=== PATIENT | male | born 1940 | race Caucasian/White ===

== ENCOUNTER 2017-06-23 00:45 | Observation (INO) | payer MEDICARE ==
[2017-06-23] VITALS (12 sets, daily range): BP systolic 152–188; BP diastolic 79–99; PULSE 76–97; RESP 16–20; O2SAT 94–97
[~2017-06-23] VITALS: Ht 177.8 cm; Wt 106.8 kg
[~2017-06-23 00:45] MED LIST: ASPI-628 PO; FERR-74 PO; LIP40 PO; LISI10TA2 PO; LOV80 SUBQ; SLO64 PO; WARF5TAB PO; [UNRECOGNIZED DRUG - CODE] PO
--- NOTE | 2017-06-23 00:55 | ED.REPORT ---
HPI-Chest Pain 40 and Over Date of Service Jun 23, 2017 ED Provider: Hadley Edmonds MD A 76 year old male with a history of CAD, stent placement, PE after surgery, hypertension and left carotid endarterectomy presents to the ED complaining of chest pressure. The pressure began at 23:00 tonight while the pt was laying down tonight and lasted for approximately two hours. This pressure has been intermittently present for two months and seems to be exertional. The pt can walk less than a block before the pressure begins, but has also experienced chest pressure at rest. This is accompanied by occasional diaphoresis and shortness of breath though the pt denies fever, cough, dysuria and nausea. The pt has been seen by his PCP for this pain but has not yet seen a logistics planning engineer. His last stress test was over ten years ago. The pt takes one 81 mg aspirin every morning and denies use of medications for erectile dysfunction or anticoagulation. He has not taken any nitro tonight. Pt is a poor historian. Nursing Notes Stated Complaint: CHEST PAIN Chief Complaint: Chest Pain Nursing Notes Reviewed: Yes Allergies: Coded Allergies: No Known Allergies (Verified Allergy, Unknown, 07/06/14) Scheduled Ascorbic Acid (Vitamin C) 500 Mg Tablet.er 500 MG PO DAILY Aspirin (Aspir 81) 81 Mg Tablet.dr 81 MG PO DAILY Atorvastatin (Lipitor) 40 Mg Tablet 40 MG PO HS Enoxaparin (Lovenox) 80 Mg/0.8 Ml Syringe 80 MG SUBQ Q12H Ferrous Sulfate (Feosol) 325 Mg Tablet 325 MG PO DAILYWM Lisinopril (Lisinopril) 10 Mg Tablet 20 MG PO DAILY Magnesium Chloride (Slow-Mag) 64 Mg Tablet 64 MG PO DAILY Warfarin Sodium (Coumadin) 5 Mg Tablet 7.5 MG PO UD General Time Seen by MD: 00:55 Chief Complaint Chest pressure Hx Obtained From: Patient, Spouse Arrived By: Walk-in Sudden in Onset?: No Onset Occurred: 1 - 4 hours ago Symptom Duration: 1 - 4 hours Recent Healthcare: Recent doctor visit Similar Sx Previous: Yes Past Medical History Past Medical History Asthma Chronic back pain Actinic keratosis PE after surgery Reports: Coronary artery disease, Hypertension Past Surgical History Stent placement Right knee scope Lumbar lami Left carotid endarterectomy Right CTR Smoking History Former Smoker (quit 1979) Social History Alcohol Use: 1-3 per day Other Social History: Good social support, Ambulatory Status Independent Review of Systems Review of Systems Note: chest pressure Constitutional: Denies: Fever Respiratory: Reports: Shortness of breath, Denies: Non-productive cough GI: Denies: Abdominal pain, Nausea, Vomiting Musculoskeletal: Denies: Neck pain Skin: Reports Diaphoresis, Denies Rash Complete sys rev & neg: except as marked. Female: Denies: Dysuria Physical Exam Initial Vital Signs Vital Signs (First) Date Time Temp Pulse Resp B/P Pulse Ox O2 Delivery O2 Flow Rate FiO2 06/23/17 00:54 36.5 91 19 174/88 96 Room Air Initial VS: Reviewed General/Constitutional: Awake, Alert Respiratory / Chest: Atraumatic, Breath sounds NL, Breath sounds = bilat, No respiratory distress Cardiovascular: Heart rate NL, Regular rhythm 4/6 systolic murmur, upper right sternal border Abdomen: Atraumatic, Soft, Non-tender, BS normoactive Neck: Atraumatic, Supple, Full range of motion Back: Atraumatic, Full range of motion Lower Extremity / Pelvis / MS: Atraumatic, Full range of motion Skin: Atraumatic, Color NL, No rash, Warm, Dry Neurologic: Oriented X3, Speech NL, No motor deficits, No sensory deficits Psychiatric: Affect NL, Mood NL Head / Eyes: Atraumatic, Normocephalic, PERRL, EOMI ENT: Atraumatic, Airway patent, Mucous membranes moist Upper Extremity / MS: Atraumatic, Full range of motion Interpretation & Diagnostics Lab Results Interpretation Result Diagram: 06/23/17 0102 06/23/17 0102 Test 06/23/17 01:02 06/23/17 03:12 White Blood Count 6.5th/mm3 (3.8-10.1) Red Blood Count 3.62mil/mm3 (4.40-5.80) Hemoglobin 12.4g/dL (13.8-17.2) Hematocrit 35.1% (41.0-50.0) Mean Corpuscular Volume 97.0fL (81-100) Mean Corpuscular Hemoglobin 34.3pg (27.0-35.0) Mean Corpuscular Hemoglobin Concent 35.3% (32.0-37.0) Red Cell Distribution Width 12.5% (12.3-15.4) Platelet Count 188bil/L (150-400) Neutrophils (%) (Auto) 44.9% (40-74) Lymphocytes (%) (Auto) 39.6% (14-46) Monocytes (%) (Auto) 11.6% (4-12) Eosinophils (%) (Auto) 3.4% (0-5) Basophils (%) (Auto) 0.3% (0-3) D-Dimer 0.85mg/L FEU (<0.50) Sodium Level 132mEq/L (134-144) Potassium Level 4.2mEq/L (3.5-5.2) Chloride Level 94mEq/L (97-108) Carbon Dioxide Level 23mmol/L (18-29) Blood Urea Nitrogen 8mg/dL (8-27) Creatinine 0.51mg/dL (0.76-1.27) Estimat Glomerular Filtration Rate 167mL/min (>59) Glucose Level 99mg/dL (60-99) Calcium Level 9.4mg/dL (8.5-10.1) Magnesium Level 1.3mg/dL (1.6-2.6) Total Bilirubin 0.5mg/dL (0.0-1.2) Aspartate Amino Transf (AST/SGOT) 40U/L (0-50) Alanine Aminotransferase (ALT/SGPT) 36U/L (0-44) Alkaline Phosphatase 67U/L (25-160) Total Protein 7.1g/dL (6.4-8.4) Albumin 4.3g/dL (3.4-5.0) ECG Interpretation ECG Interpretation: normal sinus rhythm with a rate of [address] segment changes Time: 00:56 Interpreted by: ED physician X-Ray Chest Interpretation Chest Xray Interpretation: no acute findings Interpretation / Wet Read by: Wet read ED physician Re-Eval/Medical Decision Med Decision/Clinical Course 76-year-old male with a known history of coronary artery disease presenting with exertional chest pain over approximately one month. He is now having episodic rest pain as well. Arrives pain-free but hypertensive. Initial ECG did not show ischemic changes, initial troponin was normal. He was given aspirin 324 mg and Nitropaste. He had no further chest pain. There is a history of provoked pulmonary embolism. He is not anticoagulated at present. D-dimer is elevated so a CT angiogram is presently pending. Will be admitted to the hospitalist service with the hope of provocative testing before discharge. Source of Hx: Old records Time of Eval: 00:55 Patient Status: Condition improved Re-Evaluation/Progress Note: Pt informed of the plan for admission during the initial interview. The pt understands and agrees with the plan. All questions are addressed at this time. Time of Eval: 02:18 Patient Status: Condition improved Re-Evaluation/Progress Note: Pt rechecked, who is resting without chest pain. Lab results and need for CT are discussed. Consultation : Referral / Consult Name: Cuong Coelho MD Consulted With: Hospitalist Call Returned at: 02:27 Client Services Coordinator: Agrees with eval, Agrees with plan, Accepts admit Note: Spoke with Dr. Coelho, hospitalist, regarding pt's case. Dr. Coelho agrees with the evaluation and agrees to admit the pt. Counseled Regarding: Diagnosis, Lab results, Need for admission Discharge & Departure Primary Impression: Unstable angina Additional Impression: Chest pain Chest pain type: unspecified Qualified Code: R07.9 - Chest pain, unspecified Disposition: ADMITTED TO HOSPITAL Discharge Condition All VS Reviewed: Yes Condition: Stable Referrals: Artur Chin MD (PCP) Scribe Attestation Portions of this note were transcribed by Madison Diaz. I, Dr. Edmonds personally performed the history, physical exam and medical decision-making; I reviewed and confirmed the accuracy of the information in the transcribed note. copies to: Artur Chin MD, Donald L MD Jun 23, 2017 00:55 MADISON DIAZ Jun 23, 2017 01:08
[2017-06-23 01:08] LABS: BASOPHILS % (AUTO) 0.3 % (0-3); EOSINOPHILS % (AUTO) 3.4 % (0-5); MONOCYTES % (AUTO) 11.6 % (4-12); Mean Corpuscular Hemoglobin 34.3 pg (27.0-35.0); NEUTROPHILS % (AUTO) 44.9 % (40-74); Platelet Count 188 bil/L (150-400)
[2017-06-23] MEDS ORDERED: Nitroglycerin 2% 1 Gm Ointment TOPICAL SCH (01:10)
[2017-06-23 01:58] LABS: Magnesium 1.3 mg/dL (1.6-2.6); TROPONIN T 0.01 ug/L (0.0-0.011)
[2017-06-23] MEDS ORDERED: Polyethylene Glycol (PEG) 17 Gm Powder PO PRN (02:30)
[2017-06-23] MEDS ORDERED: Ondansetron 2 mg/mL 2 mL Inj IVPUSH PRN (02:30)
[2017-06-23] MEDS ORDERED: Senna-Docusate 8.6-50 mg Tablet PO PRN (02:30)
[2017-06-23] MEDS ORDERED: Atropine 1 mg/10 mL (Code) Syringe IVPUSH PRN (02:30)
[2017-06-23] MEDS ORDERED: Alum-Mag Hydrox-Simeth 30 mL Suspension PO PRN (02:30)
--- NOTE | 2017-06-23 02:37 | PCM.HPMED ---
Subjective Date of Service Jun 23, 2017 Primary Provider: Admitting Physician: Primary Care Physician: Artur Chin MD Attending Physician: Admit Status: From the Emergency Department, 23-Hour Observation, Remote Telemetry Chief Complaint: Chest pain History of Present Illness: Tate Little is a 76 year old male with Coronary artery disease s/p stent placement, Pulmonary Embolism after surgery,Hypertension and left carotid endarterectomy presents to [facility] emergency department complaining of chest pressure. Patient reported the chest pressure has been ongoing for about a month but has progressively worsened. Pain was worst around 2300 while the patient was lying down, lasted for about 2 hours. Pain described as intermittently, pressure, located on the left anterior chest with radiation to the right side. Worsened with exertion. Denies any associated diaphoresis or nausea. Denies any dyspnea or coughing The pt has been seen by his PCP for this pain but has not yet seen a document clerk. His last stress test was in 2002 and stent placed in 2000. He has not seen a Cast Shell Grinder in years Case discussed with Dr Edmonds, EKG without any ischemic changes with normal initial troponin. Given risk factors he will be admitted for Stress test. Review of Systems: Pertinent positives as noted in HPI. All other systems were reviewed and are negative Allergies Coded Allergies: No Known Allergies (Verified Allergy, Unknown, 07/06/14) Home Medications From [facility], not yet confirmed Tate Little [id number] 1940 12/12/2016 08:00 AM Page: 10/19 Vitamin C 500 Mg stopped Aleve 220 mg Tab take 1 tablet (220MG) by ORAL route every 12 hours as needed ANUSOL-HC 1 %OINT. (G) as directed aspirin 81 mg Tab, Delayed Release take 1 tablet (81MG) by ORAL route every day benzonatate 100 mg capsule take 1 capsule by oral route 3 times every day PRN cough Fish Oil 1 tablet by mouth 2 times daily Lipitor 1/2 tablet by mouth every evening Multi-Ginger 50 & Over 1 tablet by mouth daily prednisone 20 mg tablet take 2 tablet by ORAL route every day in AM with food Vitamin E 400 Intl Units 1 tablet by mouth daily PMH C-spine surgery with cervical discectomy and fusion, with complications as noted. Acute respiratory failure secondary to cervical edema necessitating intubation and mechanical ventilation. Pulmonary embolism s/p surgery currently not on any anticoagulations Chronic mild aspiration related to above, slowly improving. Hypertension Obesity and hyperlipidemia Coronary artery disease and prior stents COPD and bronchospasm Degenerative arthritis Abnormal liver function tests at time of last hospitalization, unclear whether secondary to "shock liver" versus prior alcohol use Erectile dysfunction . Surgical History Cardiac catheterization with LAD stents 2000 C6-7 and C7-T1 cervical discectomy with fusion plate cage and bone graft on 03/2014 Left carotid endarterectomy Tonsillectomy Family History Father age 60 mother had arrhythmia Social History Hx Alcohol Use: Yes (WINE/WHISKEY-8 DRINKS/DAY) Hx Substance Use: No Hx Tobacco Use: No Smoking Status: Never Smoker Living Arrangement: with Family Exam Vital Signs Vital Sign - Last Date Time Temp Pulse Resp B/P Pulse Ox O2 Delivery O2 Flow Rate FiO2 06/23/17 00:54 36.5 91 19 174/88 96 Room Air Exam General: Alert, Oriented X3, Cooperative, No acute Distress Eyes: PERRLA, Scleral Anicteric Mouth: Mouth Normal, Mucous Membranes Moist/Guinda Neck: Supple, no Thyromegaly, trachea central. Chest & Lungs: Clear to auscultation & percussion, No adventitious breath sounds, no crackles, no wheeze Cardiovascular: Normal S1, Normal S2, No Murmurs/Rubs/Gallops, Regular Rate/ Rhythm, Murmur, Other (No JVD, no peripheral edema) Pulses: Radial (present and equal), Dorsalis Pedi (present and equal) Abdomen: Soft, Non-tender, Non-distended, Normoactive bowel tones. Musculoskeletal: Unremarkable. Normal range of motion, no swollen or erythematous joints Extremities: No edema, no cyanosis, no clubbing. Skin: No rashes. Warm and dry, no erythematous areas Neurological: Grossly neurologically intact, has generalized weakness, Normal Speech, Sensation Intact Lymphatic: Lymph nodes Cervical and Axillary not palpable. Lab and Diagnostics Labs Laboratory Tests Test 06/23/17 01:02 White Blood Count 6.5th/mm3 (3.8-10.1) Red Blood Count 3.62mil/mm3 (4.40-5.80) Hemoglobin 12.4g/dL (13.8-17.2) Hematocrit 35.1% (41.0-50.0) Mean Corpuscular Volume 97.0fL (81-100) Mean Corpuscular Hemoglobin 34.3pg (27.0-35.0) Mean Corpuscular Hemoglobin Concent 35.3% (32.0-37.0) Red Cell Distribution Width 12.5% (12.3-15.4) Platelet Count 188bil/L (150-400) Neutrophils (%) (Auto) 44.9% (40-74) Lymphocytes (%) (Auto) 39.6% (14-46) Monocytes (%) (Auto) 11.6% (4-12) Eosinophils (%) (Auto) 3.4% (0-5) Basophils (%) (Auto) 0.3% (0-3) D-Dimer 0.85mg/L FEU (<0.50) Sodium Level 132mEq/L (134-144) Potassium Level 4.2mEq/L (3.5-5.2) Chloride Level 94mEq/L (97-108) Carbon Dioxide Level 23mmol/L (18-29) Blood Urea Nitrogen 8mg/dL (8-27) Creatinine 0.51mg/dL (0.76-1.27) Estimat Glomerular Filtration Rate 167mL/min (>59) Glucose Level 99mg/dL (60-99) Calcium Level 9.4mg/dL (8.5-10.1) Magnesium Level 1.3mg/dL (1.6-2.6) Total Bilirubin 0.5mg/dL (0.0-1.2) Aspartate Amino Transf (AST/SGOT) 40U/L (0-50) Alanine Aminotransferase (ALT/SGPT) 36U/L (0-44) Alkaline Phosphatase 67U/L (25-160) Troponin T 0.010ug/L (0.0-0.011) Total Protein 7.1g/dL (6.4-8.4) Albumin 4.3g/dL (3.4-5.0) Result Diagram: 06/23/1710106/23/17101 Assessment & Plan Tate Little is a 76 year old male with Coronary artery disease s/p stent placement, Pulmonary Embolism after surgery,Hypertension and left carotid endarterectomy presents to [facility] emergency department complaining of chest pressure. 1. Acute Chest pain. Present on admission Could be Unstable angina given multiple risk factors for Acute coronary syndrome. Coronary disease with LAD stents 2000, last stress test was Aug 2007. Possible the patient has developed advanced atherosclerotic disease since last evaluation. Patient without any persistent symptoms and no anticoagulations will be initiated. Differential diagnosis includes Pulmonary embolism given prior history but less likely given low Wells score - monitor on telemetry - nothing by mouth for stress test - trending cardiac biomarkers - complete echo - continue Aspirin for antiplatelet therapy as well as statin therapy - Exercise stress test with Mercedes back up 2. Hypertension, Chronic Presumed stable - currently not on any antihypertensive medications 3. Hyperlipidemia, Chronic - continue Lipitor and Fish oil - checking lipid panel - Acetaminophen as needed for mild pain/fever/headache - Bowel regimen as needed - Antiemetic as needed Patient is admitted under observation status with expected length of stay less than 2 midnights due to severity of presenting symptoms, risk of adverse event, and complexity of treatment plan. . Resuscitation Status: CPR: Attempt Resuscitation Cuong Coelho MD Jun 23, 2017 02:37
[2017-06-23 04:11] LABS: Creatine Kinase 91 U/L (21-232)
[2017-06-23] MEDS: 0.9% Sodium Chloride 1,000 ML IV SCH ×3 (04:59→21:30)
--- NOTE | 2017-06-23 05:07 | NUR ---
Admission Pt arrived to [facility] rm 1016 at 0415 from the ED. Pt able to transfer from [facility] to bed with SBA. Pt is A/O x3, slight WILTON with no H/A's. Pt is here for CP that has gotten worse over the last 2months, causing SOB with exertion. Pt is RA, VSS. IV SL to Rt AC, patent. IV fluids started. Pt has been admitted here prior, quick re-orientation done. All questions answered. Pt is NPO for AM stress test. Cont B/B, using urinal at bedside. CPR. Bedside table in reach, call light at bedside in reach. Care continues Addendum: 06/23/17 at 0529 by JOSE ALFREDO FERNANDEZ RN Pt with tele, per case monitor SR 80's
--- NOTE | 2017-06-23 06:03 | PCM.ADCARE ---
Advance Care Planning Note Purpose of Encounter: Active Diagnoses: Coronary artery disease with stent to LAD Hypertension Hyperlipidemia These active diagnoses are sufficient risk that focused discussion on advance car planning is indicated in order to allow the patient to thoughtfully consider personal goals of care and if situations arise that prevent the ability to personally give input to insure appropriate representation of their personal desires through documentation or informed surrogate decision makers Parties in Attendance: me and patient Decisional Capacity: Good Plan: The patient's is aware of the current diagnosis and would like to continue to be full code. The patient's understands that this means for chest compressions , intubation, pressors, and all measures involved with CPR. CODE STATUS: FULL CODE Time Spent Adv.Care Planning: Total time spent [id number] in education and discussion directly related to Advance Care Plannin minutes Cuong Coelho MD Jun 23, 2017 06:03
--- NOTE | 2017-06-23 06:28 | DRSVH ---
PROCEDURE: X-RAY CHEST ONE VIEW, PORTABLE ([id number]) INDICATIONS: 76 year-old male with chest pain. TECHNIQUE: One view of the chest was acquired. COMPARISON: [facility], , CHEST 2VW, 10/04/2016, 9:21 AM. [facility], , CHEST 1V W (PORTABLE), 07/09/2014, 3:47. [facility], , CHEST 1VW (PORTABLE), 07/06/2014, 14:28. FINDINGS: Surgical changes and devices: Left neck surgical clips are again noted, as well as lower cervical spi ne anterior fixation hardware. Lungs and pleura: No pleural effusions or pneumothorax. Lungs are clear. Mediastinum: Mediastinal contours appear normal. Heart size is normal. There is aortic atheroscler osis. Bones and chest wall: No suspicious bony lesions. Overlying soft tissues appear unremarkable. IMPRESSION: No acute cardiopulmonary disease. Dictated by: Shaheed Pacheco M.D. on 06/23/2017 at 6:26 Approved by: Shaheed Pacheco M.D. on 06/23/2017 at 6:27
[2017-06-23] MEDS ORDERED: ASPI-973 PO (07:14)
[2017-06-23] MEDS ORDERED: LISI-567 PO (07:15)
[2017-06-23] MEDS: Sodium Chloride LOK Flush 10 mL Syringe IVFLUSH SCH ×3 (08:30→20:21)
--- NOTE | 2017-06-23 09:24 | DRSVH ---
PROCEDURE: CT ANGIO CHEST PULMONARY EMBOLISM ([id number]) INDICATIONS: 76 year-old male with chest pain. TECHNIQUE: After the administration of intravenous contrast, 2 mm thick sections acquired from the pulmonary api nara to the posterior costophrenic angles. 3-dimensional maximum intensity projection (MIP) coronal a nd sagittal reformats were then acquired through the thorax. For radiation dose reduction, the follo wing was used: automated exposure control, adjustment of mA and/or kV according to patient size. COMPARISON: [facility], CT, CHEST ANGIO-PE, 07/06/2014, 14:04. FINDINGS: Preliminary interpretation rendered by [facility]. Image quality: Excellent. Pulmonary arteries: Pulmonary arteries are normal in size, and demonstrate no intraluminal filling d efects to suggest central pulmonary embolism. Lungs and pleura: Lungs are clear. No pleural effusions or pneumothorax. Bilateral calcified pleur al plaques are again noted. Central and peripheral airways are patent. Mediastinum: Heart size is normal, without pericardial effusion. There is widespread coronary arter y atherosclerosis. No mediastinal or hilar adenopathy. Thoracic aorta is normal in caliber and enhan cement. Esophagus is normal in caliber, without hiatal hernia. Bones and chest wall: No suspicious bony lesions. Ribs and thoracic spine appear intact throughout. Thyroid gland is small in overall size. No axillary or supraclavicular adenopathy. Lower cervical spine fixation hardware is present. 3.0 cm cystic lesion within the medial right subscapularis muscle appears new since 2013. Abdomen: There is diffuse fatty infiltration of the liver. IMPRESSION: 1. No evidence for central pulmonary embolism. 2. Bilateral calcified pleural plaques indicate remote asbestos exposure. 3. Diffuse fatty infiltration of the liver. 4. 3.0 cm cystic lesion within the medial right subscapularis muscle, likely a soft tissue ganglion c yst. Consider noncontrast right shoulder MRI to evaluate for any underlying acute internal derangemen t. Dictated by: Shaheed Pacheco M.D. on 06/23/2017 at 9:14 Approved by: Shaheed Pacheco M.D. on 06/23/2017 at 9:23
[2017-06-23] MEDS ORDERED: Magnesium Sulf 4 Gm/100 mL H2O 4 GM in IV Premix 1 EACH IV ONE (09:35)
[2017-06-23 09:37] LABS: Creatine Kinase 82 U/L (21-232)
--- NOTE | 2017-06-23 12:23 | NUR ---
KAITLIN explained and signed. Copy of KAITLIN and Medicare self administered medication information given to pt.
--- NOTE | 2017-06-23 16:19 | NUR ---
Social Work-initial assessment/readiness for discharge/ multidisciplinary rounds: Data:See initial assessment. Pt is 76 y/o male who was admitted on 06/23/17 for chest pain per H&P. Pt's insurance is [employer] and PCP is Deja Chin MD. EMR Reviewed. SW met with pt at bedside, SW role explained. Pt is alert and oriented x3. Pt resides at home with his [place] in [facility] where he remains independent with ADLS. Pt does not use any DME and drives. Pt has no HH or SNF history. Pt has no detention care insurance or VA benefits. SW discussed DPOA/ advanced directive, pt confirms he has completed this, SW encouraged a copy to be brought in. No concerns noted in morning rounds regarding pt's capacity for self care, per RN or MD. Pt has been up independent in his room. Pt's to provide transport home. SW provided pt with discharge planning checklist and encouraged pt to call with any questions, phone number provided. No anticipated discharge needs. SW will continue to follow if needs arise. Assessment:Pt who is independent at baseline. Plan:Pt to discharge home when medically stable via POV. No anticipated discharge needs. SW will continue to follow if needs arise. SUGAR Beavers Addendum: 06/23/17 at 1622 by KIARA MATTSON SS Amended: Links added.
--- NOTE | 2017-06-23 16:24 | NUR ---
Shift Report: Tate's BP was high this morning before his stress test and his mag level was low. Lisinopril, Mag. Sulfate, Mag. Oxide given per order. Stress test completed early afternoon. He will be NPO again at midnight for the second part of his test tomorrow - his resting portion of the study.
[2017-06-24 00:03] VITALS: BP 170/84; PULSE 85; RESP 16; O2SAT 96
[2017-06-24 04:26] VITALS: BP 164/92; PULSE 95; RESP 20; O2SAT 93
[2017-06-24 06:08] VITALS: PULSE 77
--- NOTE | 2017-06-24 06:25 | NUR ---
uneventful night Pt denies chest pain this shift. Tele SR 70s-80s. slept most of the night. NPO since midnight for the second part of MIBI. Pt compliant.
[2017-06-24 06:46] LABS: BASOPHILS % (AUTO) 0.2 % (0-3); EOSINOPHILS % (AUTO) 2.8 % (0-5); Mean Corpuscular Hemoglobin 33.8 pg (27.0-35.0); Mean Corpuscular Volume 98.1 fL (81-100); NEUTROPHILS % (AUTO) 54.9 % (40-74); Platelet Count 183 bil/L (150-400)
[2017-06-24 08:00] VITALS: PULSE 104
[2017-06-24 08:24] VITALS: BP 159/91; PULSE 84; RESP 18; O2SAT 97
[2017-06-24] MEDS: Sodium Chloride LOK Flush 10 mL Syringe IVFLUSH SCH (08:30)
--- NOTE | 2017-06-24 10:04 | PCM.PNMED ---
Subjective Date of Service Jun 24, 2017 Subjective Patient seen and examined. No chest pain. Vitals stable. Exam Vital Signs Vital Sign - Last Date Time Temp Pulse Resp B/P Pulse Ox O2 Delivery O2 Flow Rate FiO2 06/24/17 08:24 36.6 84 18 159/91 97 Room Air Intake and Output 06/23/17 06/23/17 06/24/17 Cumulative From/Thru 15:00 23:00 07:00 06/23/17 00:54 - 06/24/17 06:21 Intake Total 518 ml 1539 ml 2057 ml Output Total 650 ml 1800 ml 3050 ml Balance -132 ml -261 ml -993 ml Intake Oral 518 ml 400 ml 918 ml IV Total 1139 ml 1139 ml Output Urine Total 650 ml 1800 ml 3050 ml # Voids 2 2 # Bowel Movements 0 0 Exam General: Alert, Oriented X3, Cooperative, No acute Distress Chest & Lungs: Clear to auscultation & percussion, No adventitious breath sounds, no crackles, no wheeze Cardiovascular: Normal S1, Normal S2, No Murmurs/Rubs/Gallops, Regular Rate/ Rhythm, Murmur, Other (No JVD, no peripheral edema) Pulses: Radial (present and equal), Dorsalis Pedi (present and equal) Abdomen: Soft, Non-tender, Non-distended, Normoactive bowel tones. Musculoskeletal: Unremarkable. Normal range of motion, no swollen or erythematous joints Extremities: No edema, no cyanosis, no clubbing. Lab and Diagnostics Result Diagram: 06/24/17 0606/24/17 0600 Assessment & Plan Tate Little is a 76 year old male with Coronary artery disease s/p stent placement, Pulmonary Embolism after surgery,Hypertension and left carotid endarterectomy presents to [facility] emergency department complaining of chest pressure. 1. Acute Chest pain. Present on admission - Strest test second part toay - complete echo, pendin gfinal read - continue Aspirin for antiplatelet therapy as well as statin therapy 2. Hypertension, Chronic Presumed stable - will start patient on amlodipine , on lisinopril at home 3. Hyperlipidemia, Chronic - continue Lipitor and Fish oil - Acetaminophen as needed for mild pain/fever/headache - Bowel regimen as needed - Antiemetic as needed Patient is admitted under observation status with expected length of stay less than 2 midnights due to severity of presenting symptoms, risk of adverse event, and complexity of treatment plan. . VTE Mechanical Devices: Intermittant Pneumatic CD Resuscitation Status: CPR: Attempt Resuscitation Time spent 35 mins Nash Wayne MD Jun 24, 2017 10:04
[2017-06-24] MEDS: 0.9% Sodium Chloride 1,000 ML IV SCH (10:44)
[2017-06-24 11:37] VITALS: BP 139/72; PULSE 86; RESP 18; O2SAT 97
--- NOTE | 2017-06-24 12:25 | DRSVH ---
PROCEDURE: 2 DAY PHARMACEUTICAL STRESS TEST Rest and exercise myocardial perfusion SPECT with gated imaging and ejection fraction RADIOPHARMACEUTICAL: 24.2 mCi Tc-99m tetrafosmin IV at rest and 24.7 mCi Tc-99m tetrafosmin IV at pe ak exercise. [id number] was performed. INDICATIONS: CHEST PAIN. TECHNIQUE: Radiopharmaceutical was injected at peak stress test, and also at rest. SPECT images wer e obtained. SPECT myocardial perfusion images were displayed in short axis, horizontal long axis, an d vertical long axis views. Gated images were reviewed using Auto[employer] software. COMPARISON: None. CARDIAC STRESS: A standard lexiscan stress test using lexisacan 0.4mg IV X1 was performed by the patient under the lau pervision of an attending staff. Hemodynamic data: There is normal blood pressure and heart rate response to stress. Symptoms: Patient had chest pain during the stress test. EKG: Mild horizontal ST depressions noted in the inferior and anterolateral leads; no ectopy. FINDINGS: Raw data: There is good myocardial labeling by radiotracer. No significant motion artifacts. Left ventricle function: Resting gated images show normal LV size, wall motion, and function (EF 74% ). No transient ischemic dilation. The left ventricle resting end-diastolic volume is 75 mL. Left ventricle stress ejection fraction is 48% with severe hypokinesis of the anterior wall, septum, and a pex; normal values are above 45%. Myocardial perfusion: Large mildly to moderately severe reversible defect in the anterior wall that is consistent with ischemia without prior infarction. IMPRESSION: Abnormal study consistent with significant ischemia. 1) Large area of mildly to moderately severe reversible defect in the anterior wall that is consisten t with ischemia without prior infarction. 2) Normal resting LV size, wall motion, and function (resting EF 74%) but post stress LV images have severe hypokinesis of the anterior wall, septum, and the apex with LVEF of 48%. This could be due to myocardium stunning from LAD ischemia. 3) Chest pain during stress test could be angina. 4) ECG suggestive of ischemia. 5) No prior nuclear stress test available for comparison. Dictated by: Karyn Stevenson M.D. on 06/24/2017 at 12:16 Approved by: Karyn Stevenson M.D. on 06/24/2017 at 12:23
[2017-06-24] MEDS ORDERED: MeTOProlol XL 25 mg ER24 Tablet PO SCH (12:35)
--- NOTE | 2017-06-24 12:43 | PCM.DIMED ---
Discharge Instructions Date of Service Jun 24, 2017 Dates of Hospitalization Jun 23, 2017 at 03:13 Discharge Diagnosis Discharge Diagnosis CAD Diet Discharge Diet: Low fat, Low Sodium, Heart Healthy Activity Discharge Activity: Limited until seen by PCP Call your provider Call your provider for: Fever or Chills, Chest pain Patient Instructions Patient Instructions Please call Dr. Juan Stevenson's group in case you do not hear back from them within next 48 hours. Follow-up plan Patient will be called by Dr. Stevenson (or colleague) to set up an appointment for outpatient cardiac cath. Follow-up with PCP in: 1 week Nash Wayne MD Jun 24, 2017 12:43
[2017-06-24] MEDS ORDERED: METO-386 PO (12:44)
[2017-06-24] MEDS ORDERED: AMLO5TAB2 PO (12:44)
--- NOTE | 2017-06-24 12:46 | PCM.DC.MED ---
Discharge Summary Date of Service Jun 24, 2017 Dates of Hospitalization Date of Hospital Admission Jun 23, 2017 at 03:13 Date of Discharge: Jun 24, 2017 Providers: Admitting Physician: Cuong Coelho MD Primary Care Physician: Artur Chin MD Attending Physician: Brianda Tao MD Diagnosis at Time of Discharge Diagnosis at Time of Discharge CAD Procedures Other Diagnostics Stress test (Mercedes) IMPRESSION: Abnormal study consistent with significant ischemia. 1) Large area of mildly to moderately severe reversible defect in the anterior wall that is consistent with ischemia without prior infarction. 2) Normal resting LV size, wall motion, and function (resting EF 74%) but post stress LV images have severe hypokinesis of the anterior wall, septum, and the apex with LVEF of 48%. This could be due to myocardium stunning from LAD ischemia. 3) Chest pain during stress test could be angina. 4) ECG suggestive of ischemia. 5) No prior nuclear stress test available for comparison. 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 Patient reported the chest pressure has been ongoing for about a month but has progressively worsened. Pain was worst around 2300 while the patient was lying down, lasted for about 2 hours. Pain described as intermittently, pressure, located on the left anterior chest with radiation to the right side. Worsened with exertion. Denies any associated diaphoresis or nausea. Denies any dyspnea or coughing The pt has been seen by his PCP for this pain but has not yet seen a escapement matcher. His last stress test was in 2002 and stent placed in 2000. He has not seen a Nutrition Technician in years Case discussed with Dr Edmonds, EKG without any ischemic changes with normal initial troponin. Given risk factors he will be admitted for Stress test. 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 1. Acute Chest pain. Present on admission - Stress results as noted above - discussed the case with cardiology (dr. Stevenson) who suggested diagnostic cath , either inpatient or next week outpatient, patient said he would like to get it done this week after he has see his other docters - suggested to come in if he experiences chest pain - started on metoprolol XL with aspirin and atorvastatin 2. Hypertension, Chronic -to continue amlodipine 5mg at home, along with lisinopril 3. Hyperlipidemia, Chronic - continue Lipitor and Fish oil - Acetaminophen as needed for mild pain/fever/headache - Bowel regimen as needed - Antiemetic as needed . Exam Vital Signs (Last) Date Time Temp Pulse Resp B/P Pulse Ox O2 Delivery O2 Flow Rate FiO2 06/24/17 11:37 36.5 86 18 139/72 97 Room Air Test 06/23/17 01:02 06/23/17 03:12 06/23/17 08:51 06/24/17 06:00 D-Dimer 0.85mg/L FEU (<0.50) Total Bilirubin 0.5mg/dL (0.0-1.2) Aspartate Amino Transf (AST/SGOT) 40U/L (0-50) Alanine Aminotransferase (ALT/SGPT) 36U/L (0-44) Alkaline Phosphatase 67U/L (25-160) Total Protein 7.1g/dL (6.4-8.4) Albumin 4.3g/dL (3.4-5.0) Thyroid Stimulating Hormone (TSH) 1.960uIU/mL (0.450-4.500) Total Creatine Kinase 82U/L (21-232) Creatine Kinase MB 4.2ng/mL (0.0-10.4) Creatine Kinase MB % % (0.0-5.0) Troponin T 0.010ug/L (0.0-0.011) White Blood Count 5.8th/mm3 (3.8-10.1) Red Blood Count 3.76mil/mm3 (4.40-5.80) Hemoglobin 12.7g/dL (13.8-17.2) Hematocrit 36.9% (41.0-50.0) Mean Corpuscular Volume 98.1fL (81-100) Mean Corpuscular Hemoglobin 33.8pg (27.0-35.0) Mean Corpuscular Hemoglobin Concent 34.4% (32.0-37.0) Red Cell Distribution Width 12.8% (12.3-15.4) Platelet Count 183bil/L (150-400) Neutrophils (%) (Auto) 54.9% (40-74) Lymphocytes (%) (Auto) 28.9% (14-46) Monocytes (%) (Auto) 13.0% (4-12) Eosinophils (%) (Auto) 2.8% (0-5) Basophils (%) (Auto) 0.2% (0-3) Sodium Level 135mEq/L (134-144) Potassium Level 4.4mEq/L (3.5-5.2) Chloride Level 96mEq/L (97-108) Carbon Dioxide Level 22mmol/L (18-29) Blood Urea Nitrogen 6mg/dL (8-27) Creatinine 0.42mg/dL (0.76-1.27) Estimat Glomerular Filtration Rate 209mL/min (>59) Glucose Level 116mg/dL (60-99) Calcium Level 9.4mg/dL (8.5-10.1) Magnesium Level 1.7mg/dL (1.6-2.6) Triglycerides Level 51mg/dL (0-149) Cholesterol Level 161mg/dL (100-199) LDL Cholesterol, Calculated 39.800mg/dL (0-99) VLDL Cholesterol 10.200mg/dL HDL Cholesterol 111mg/dL (>39) Cholesterol/HDL Ratio 1.45 (0.0-4.4) Discharge Medications Discharge Medications Amlodipine (Amlodipine) 5 Mg Tablet 5 MG PO DAILY Prescribed by: BRIANDA TAO MD Aspirin (Aspirin) 81 Mg Tablet 81 MG PO DAILY (Reported) Atorvastatin (Lipitor) 40 Mg Tablet 40 MG PO HS (Reported) Lisinopril (Lisinopril) 20 Mg Tablet 20 MG PO DAILY (Reported) Metoprolol Succinate ER (Metoprolol Succinate ER) 25 Mg Tab.er.24h 25 MG PO DAILY Prescribed by: BRIANDA TAO MD As needed Nitroglycerin SL (Nitroglycerin SL) 0.4 Mg Tab.subl 0.4 MG SL [id number] PRN PRN For Chest Pain Max 3 at a time. Prescribed by: BRIANDA TAO MD Followup Plan Follow-up plan Patient will be called by Dr. Stevenson (or colleague) to set up an appointment for outpatient cardiac cath. Discharge Diet: Low fat, Low Sodium, Heart Healthy Discharge Activity: Limited until seen by PCP Patient Instructions Please call Dr. Juan Stevenson's group in case you do not hear back from them within next 48 hours. Follow-up with PCP in: 1 week Time spent 45 mins Brianda Tao MD Jun 24, 2017 12:46
[2017-06-24] MEDS ORDERED: NITR0.4T38 SL (12:50)
--- NOTE | 2017-06-24 13:40 | NUR ---
Discharge of patient Reviewed discharge instructions with patient and patient's . Both verbalized understanding. Pt discharged via wheelchair with prescriptions and instructions. Tele and IV previously discontinued. Pt left hospital with to home self care.
--- NOTE | 2017-06-24 13:47 | NUR ---
Social Work: Discharge Data & Assessment: EMR reviewed. Patient is on day 1 of hospitalization for chest pain & unstable angina per H&P. Patient was discussed in morning rounds. Patient has been deemed medically stable for discharge today per MD. No concerns were noted by MD or staff. Transportation will be provided by spouse via POV. Patient has no additional needs at this time. Plan: Patient will discharge home today. Transportation will be provided by spouse. No needs are anticipated at this time. SUGAR Alaniz
[2017-06-28] MEDS ORDERED: NAPR220C11 PO (16:47)
== END 2017-06-24 13:40 | disposition home or self-care (01) ==
LOC: SED 00:45 → MPC 03:13
PROVIDERS: ADMIT Hospitalist; ATTEND Hospitalist
DX: R07.9 Chest pain, unspecified (principal); I25.10 Atherosclerotic heart disease of native coronary artery without angina pectoris; I10 Essential (primary) hypertension; E78.5 Hyperlipidemia, unspecified; J45.909 Unspecified asthma, uncomplicated; M19.90 Unspecified osteoarthritis, unspecified site; J44.9 Chronic obstructive pulmonary disease, unspecified; M54.89 Other dorsalgia; Z86.711 Personal history of pulmonary embolism; Z95.5 Presence of coronary angioplasty implant and graft; Z79.82 Long term (current) use of aspirin; Z79.01 Long term (current) use of anticoagulants; Z87.891 Personal history of nicotine dependence
CPT/HCPCS: 36415; 71010; 71275; 78452; 80048; 80053; 80061; 82550; 82553; 83036; 83735; 84443; 84484; 85025; 85378; 93005; 93017; 96374; 99285; A9502; C8929; G0378; J2785; J3475; J7030; Q9967

== ENCOUNTER 2017-06-29 00:03 | Day surgery (SDC) | payer MEDICARE ==
[~2017-06-29] VITALS: Ht 177.8 cm; Wt 106.7 kg
[2017-06-29] VITALS (22 sets, daily range): BP systolic 129–167; BP diastolic 65–91; PULSE 67–86; RESP 12–18; O2SAT 93–97
[~2017-06-29 00:03] MED LIST changes: +AMLO5TAB2 PO; -ASPI-628 PO; +ASPI-973 PO; -FERR-74 PO; +LISI-567 PO; -LISI10TA2 PO; -LOV80 SUBQ; +METO-386 PO; +NAPR220C11 PO; +NITR0.4T38 SL; -SLO64 PO; -WARF5TAB PO; -[UNRECOGNIZED DRUG - CODE] PO
[2017-06-29] MEDS ORDERED: FUR20 PO (10:26)
[2017-06-29] MEDS ORDERED: AMLO5TAB2 PO (10:28)
[2017-06-29] MEDS ORDERED: NITR0.4T38 SL (10:28)
[2017-06-29] MEDS ORDERED: METO-386 PO (10:28)
[2017-06-29 10:38] LABS: BASOPHILS % (AUTO) 0.4 % (0-3); EOSINOPHILS % (AUTO) 2.8 % (0-5); MONOCYTES % (AUTO) 11.2 % (4-12); Mean Corpuscular Hemoglobin 34.1 pg (27.0-35.0); Mean Corpuscular Volume 97.4 fL (81-100); NEUTROPHILS % (AUTO) 58.4 % (40-74); Platelet Count 234 bil/L (150-400)
[2017-06-29 10:55] LABS: INR 0.99 ratio
[2017-06-29] MEDS ORDERED: Nitroglycerin 50,000 mcg/250 mL D5W Premix IV ONE (11:57)
[2017-06-29] MEDS ORDERED: Heparin 10,000 Unit/1,000 mL NS Premix IV ONE ×2 (11:57→13:27)
[2017-06-29] MEDS ORDERED: Heparin 1,000 Unit/mL 10 mL Inj ONE ×2 (11:57→13:04)
[2017-06-29] MEDS ORDERED: Heparin 1,000 Units/500 mL NS Premix IV ONE (11:57)
[2017-06-29] MEDS ORDERED: fentaNYL-PF 50 mCg/mL 2 mL Inj ONE ×4 (12:19→13:43)
[2017-06-29] MEDS ORDERED: 0.9% Sodium Chloride 50 ML ONE (12:33)
[2017-06-29] MEDS ORDERED: Verapamil 2.5 mg/mL 2 mL Inj ONE (12:34)
[2017-06-29] MEDS ORDERED: EPINEPHrine 0.1 mg/mL 10 mL Syringe ONE (12:47)
[2017-06-29] MEDS ORDERED: Atropine 1 mg/10 mL (Code) Syringe ONE (12:47)
--- NOTE | 2017-06-29 13:25 | PCM.CVCATH ---
Cardiac Cath Report Date of Service Jun 29, 2017 Primary Indication Unstable angina, abnormal stress test, known CAD with prior LAD stent Procedure coronary angiography Vascular Access Right radial artery using 6 Fr slender sheath, closure with TR band. Diagnostic Catheters Left main: Catherine 4.5, 6 Fr RCA: Catherine 4.5, 6 Fr Procedure Details Coronary angiography details: The patient was brought to the cardiac catheterization lab in the fasting state. Patient was laid supine on the cardiac catheterization table and the right forearm was prepped and draped in the usual sterile fashion. One percent Xylocaine was infiltrated over the right radial artery. Vascular access was then achieved under ultrasound guidance. Guide wire was used to advance the catheter through the sheath and up into aortic sinuses. After coronary angiography was completed, guide wire was advanced through the catheter ahead of the tip of the catheter and the guide wire along with the catheter were pulled together out of the sheath. Medications/Fluoro Time Medications/contrast/fluoroscopy administered: see cath tech report Blood loss: 5 mls Findings Coronary angiography: Right dominance a. Left main is non-existent as LAD and LCx have separate ostia. b. LAD is normal caliber with patent mid LAD stent having mild to moderate diffuse in-stent restenosis. There is also a medium to large caliber diagonal artery. Mild luminal irregularities elsewhere in the LAD and the diagonal branch. c. LCx is normal caliber calcific vessel giving rise to an early medium caliber first obtuse marginal (OM1) artery. The OM1 has 90-95% calcific stenosis in the proximal segment. The LCx, OM2 and OM3 branches have minimal luminal irregularities. There are collaterals going to the right coronary artery. d. RCA has chronic total occlusion proximally. There are left to right and right to right collaterals noted. Complications There were no periprocedural complications identified. Summary Two vessel obstructive coronary artery disease with 90-95% calcific stenosis of the OM1 and chronic total occlusion of the RCA. Recommendations 1) Proceed with PCI of the OM1 with Dr. Hampton. 2) Maximize medical management of coronary artery disease. copies to: Artur Chin MD, Bhrigu R MD Jun 29, 2017 13:25 Complications There were no periprocedural complications identified. Karyn Stevenson MD Jun 29, 2017 13:25
--- NOTE | 2017-06-29 15:47 | DI95 ---
[address] [address] INTERVENTIONAL CARDIAC CATHETERIZATION PATIENT: JOHN NORIEGA : 1940 MR#: [id number] ADMIT: 06/29/2017 JOB ID: [id number] DATE OF PROCEDURE: 06/29/2017 PATIENT PROFILE: The patient is a 76-year-old male who presented with acute coronary syndrome. PROCEDURE: 1. Balloon angioplasty and stenting to the first obtuse marginal branch. 2. Vascular closure device Perclose. COMPLICATIONS: None. METHOD: Following diagnostic coronary angiogram performed by Dr. Stevenson, heparin 6,000 units were given. An attempt to engage the left coronary ostium with a CLS 4.5 guide and a JL4 guide via transradial was unsuccessful. It did not provide enough support. The vascular access was then obtained from the right groin under 1% lidocaine local anesthesia using a 6-Georgian sheath. A 6-Georgian JL4 guide was advanced to left coronary ostium. A Runthrough wire was placed inside the first obtuse marginal branch. A guide liner was used to provide better support. An attempt to cross the lesion with a 2.0 x 15 mm balloon was unsuccessful. This lesion was then pre-dilated with a 1.2, 1.5 and 2.0 mm balloons. The 2.0 mm balloon was burst at 16 atmospheres. An NC 2.0 and 2.5 mm balloon was then used to dilate the lesion. The NC 2.5 x 15 mm balloon was burst at 18 atmospheres. A Xience 2.5 x 15 mm stent was placed inside the lesion and deployed at 20 atmospheres for 30 seconds. Final angiogram was obtained. Right femoral angiogram was performed. Following sheath removal, hemostasis was achieved by using a Perclose device. The patient tolerated the procedure well. He was transferred to [facility] in good condition. TOTAL CONTRAST USED: 145 cc. FLUOROSCOPY TIME: 20.3 minutes. RESULTS: Successful balloon angioplasty and stenting to the tight culprit and heavily calcified first obtuse marginal branch lesion by deploying one drug-eluting stent (2.5 x 15 mm) to achieve an excellent angiographic result with KING-3 flow distally. [facility]
--- NOTE | 2017-06-29 16:05 | NUR ---
Care assumed from Horace Cervantes R.N at 15:00. Right radial site hematoma unchanged, area marked, handoff to Jessica Llanos R.N. Right groin dressing has small spot of blood on edge of gauze, otherwise groin area is soft. Sinus rhythm on the monitor.
--- NOTE | 2017-06-29 20:49 | NUR ---
Post Angiogram/Angioplasty recovery R forearm access site with significant hematoma that is resolving with well marked borders. Circulation distal puncture site has never altered. Ice being applied intermittently. Right groin site now with pressure drsg helpful in maintaining ooze at that site. Pressure drsg applied to R upper arm and L forearm at site of unsuccessful IV starts on admission. Bedside assessment shared with receiving RN, Scott Melton.
--- NOTE | 2017-06-29 21:00 | NUR ---
Transfer from [facility] to [facility] Room 2022 Pt arrived to room at approximately 2100 in a bed. Pt is SL x2 and VSS and AOx3. Pt SpO2 >92% on RA. Jessica VICTOR and self viewed pt's groin site, radial site, and IV sites together at pt's bedside. Pt's right arm has dark purple bruising but the site around the radial insertion site is soft to the touch and pt does not c/o tenderness when area is palpated. There is no bruising seen around the groin site dressing and the groin site is soft to the touch and pt does not c/o tenderness when area is palpated. Due to pt's high bleed risk at this time the pt has chosen to stay on bedrest throughout the rest of the night shift manager and will try and get OOB for the first time in the AM.
[2017-06-30 03:00] VITALS: BP 175/89; PULSE 89; RESP 16; O2SAT 96
[2017-06-30 04:36] LABS: Mean Corpuscular Hemoglobin 33.8 pg (27.0-35.0); Mean Corpuscular Volume 97.5 fL (81-100)
[2017-06-30 05:56] VITALS: PULSE 77
[2017-06-30 06:50] VITALS: BP 176/90; PULSE 79; RESP 16; O2SAT 96
[2017-06-30 08:28] VITALS: BP 149/81; PULSE 78; RESP 18; O2SAT 98
[2017-06-30] MEDS ORDERED: MeTOProlol XL 25 mg ER24 Tablet PO SCH (08:30)
[2017-06-30 08:41] VITALS: PULSE 85
[2017-06-30 10:17] VITALS: BP 159/77; PULSE 77; RESP 18; O2SAT 98
--- NOTE | 2017-06-30 10:48 | PCM.DIMED ---
Discharge Instructions Date of Service Jun 30, 2017 Dates of Hospitalization June 29 2017 Discharge Diagnosis Discharge Diagnosis CAD Medication Instructions Additional med instructions Please start taking clopidogrel 75 mg one tablet per day. This medicine is used to help prevent your stent from clotting. It is very important to take this medicine every single day until your data migration consultant told she to stop. Continue taking aspirin every day. I have increased your atorvastatin from 20 mg daily to 40 mg daily. You may [id number] prescription (20 mg) until you have finished it then start the new 40 mg tabs. Otherwise continue with all of your previous home medications Test Results Test Results Successful drug-eluting stent to first obtuse marginal. Diet Discharge Diet: Low fat, Low Sodium, Heart Healthy Activity Discharge Activity: Other (You will be contacted to start cardiac rehabilitation. No lifting greater than 10 pounds for the next 2 weeks. He may shower but avoid submerging in a tub for one week. He may resume driving in 2 days.) Call your provider Call your provider for: Fever or Chills, Shortness of breath, Bleeding, Chest pain, Weakness (unilateral) Patient Instructions Follow-up plan Dr. Stevenson is going to have his home health scheduler contact you for a follow-up appointment in September. The office may also have you follow-up prior to that. Modesto Rodriguez PA-C Jun 30, 2017 10:13
--- NOTE | 2017-06-30 11:00 | NUR ---
Activity pt able to walk around Unit holding on to 's arm. Fast steady gait, denied c/p, dizziness or SOB. stating pt's back to baseline.
--- NOTE | 2017-06-30 11:38 | PCM.DC.CAR ---
Discharge Summary Date of Service Jun 30, 2017 Date of Hospital Admission June 29, 2017 Date of Discharge: Jun 30, 2017 Providers: Admitting Physician: Primary Care Physician: Artur Chin MD Attending Physician: Rainer Lunsford MD Diagnosis at Time of Discharge CAD Problems: Invasive Procedures: Diagnostic Left heart catheterization via right radial artery with Dr. Stevenson. PCI with drug-eluting stent ( Xience 2.5 x 15mm) to first obtuse marginal branch (90-95% calcific occlusion) via right groin Dr Hampton Brief History and Physical: Patient with reported history of CAD with previous stent to LAD remotely. Presented with unstable angina and abnormal exercise stress test. Patient was recommended for diagnostic heart catheterization. This was significant for a 90 - 95% calcific occlusion of the first obtuse marginal branch. Patient underwent PCI with drug-eluting stent. Patient reported an uneventful night last night without chest pain, shortness of breath, orthopnea, palpitations. He had noted some swelling in his right forearm which is receding. He denies any pain in his right groin. He has not had any numbness tingling or weakness in the right hand or his right leg. On exam he is lying flat in bed as I entered. No apparent distress. Eyes clear PERRLA neck was supple chest was symmetrical lungs are clear to auscultation heart was regular rate and rhythm. Right forearm has diffuse receding bruising. There is no significant tenderness otherwise. Right groin is benign without hematoma, bruise, bruit. Lungs are otherwise symmetrical without significant edema. Pulses are adequate. Hospital Course: Diagnostic left heart catheterization revealing 9095% calcified first obtuse marginal branch. PCI with JERI to first obtuse marginal. Uneventful evening without symptoms. Telemetry was benign for dysrhythmia. - Discharge Medications Amlodipine (Amlodipine) 5 Mg Tablet 5 MG PO DAILY Aspirin (Aspirin) 81 Mg Tablet 81 MG PO DAILY Atorvastatin (Lipitor) 40 Mg Tablet 20 MG PO HS Furosemide (Furosemide) 20 Mg Tab 20 MG PO DAILY Lisinopril (Lisinopril) 20 Mg Tablet 20 MG PO DAILY Metoprolol Succinate ER (Metoprolol Succinate ER) 25 Mg Tab.er.24h 25 MG PO DAILY Nitroglycerin SL (Nitroglycerin SL) 0.4 Mg Tab.subl 0.4 MG SL Q5MIN Miscellaneous Medications Naproxen Sodium (Aleve) 220 Mg Capsule 220 MG PO Additional med instructions Please start taking clopidogrel 75 mg one tablet per day. This medicine is used to help prevent your stent from clotting. It is very important to take this medicine every single day until your risk and compliance analytics director told she to stop. Continue taking aspirin every day. I have increased your atorvastatin from 20 mg daily to 40 mg daily. You may [id number] prescription (20 mg) until you have finished it then start the new 40 mg tabs. Otherwise continue with all of your previous home medications Followup Plan Disposition: Patient appeared to be doing well at time of discharge I reviewed all instructions with him and his . He will continue on all of his home medications. It was unclear what dose of atorvastatin he was taking. I have advised him to take 40 mg daily. He and his are given instructions of the importance of taking clopidogrel until he is told to stop by the risk and compliance analytics director. He will also take aspirin indefinitely. All other meds as previously prescribed. Follow-up plan Dr. Stevenson is going to have his timing machine operator contact you for a follow-up appointment in September. The office may also have you follow-up prior to that. Discharge Activity: Other (You will be contacted to start cardiac rehabilitation. No lifting greater than 10 pounds for the next 2 weeks. He may shower but avoid submerging in a tub for one week. He may resume driving in 2 days.) Time spent 25 minutes with patient reviewing instructions and evaluating him. An additional hour to conclude computer work and notes. Modesto Rodriguez PA-C Jun 30, 2017 11:38
--- NOTE | 2017-06-30 12:36 | NUR ---
discharge of patient Reviewed discharged instructions with patient and patient's . Both verbalized understanding. Patient discharged via wheelchair with instructions, Plavix prescription sent to pharmacy by Cardiology AYESHA. IV and Telemetry previously discontinued. patient left hospital with to home self care.
== END 2017-06-30 12:35 | disposition home or self-care (01) ==
LOC: SOUO 00:03 → PCC 20:40 → UNDOADMIN 20:40 → SOUO 06-30 12:35
PROVIDERS: ATTEND Internal Medicine Interventional Cardiology
DX: I25.110 Atherosclerotic heart disease of native coronary artery with unstable angina pectoris (principal); I25.82 Chronic total occlusion of coronary artery; I25.84 Coronary atherosclerosis due to calcified coronary lesion; Z95.5 Presence of coronary angioplasty implant and graft; I10 Essential (primary) hypertension; E78.5 Hyperlipidemia, unspecified; M54.16 Radiculopathy, lumbar region; Z79.82 Long term (current) use of aspirin; Z79.52 Long term (current) use of systemic steroids
CPT/HCPCS: 36415; 80048; 85025; 85027; 85610; 93005; 93454; 99152; 99153; C1725; C1729; C1760; C1769; C1874; C1887; C1894; C9600; J1644; J2250; J3010; Q9967